=== PATIENT | male | born 2000 | race Caucasian/White ===

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

== ENCOUNTER 2021-06-21 12:10 | Emergency (ER) | payer SELFPAY ==
[~2021-06-21] VITALS: Ht 175.3 cm; Wt 76.2 kg
[~2021-06-21 12:10] MED LIST: SUDOGEST30 MG PO; ZITHROMAX250 MG PO
--- NOTE | 2021-06-22 16:31 | EKG ---
[facility] [address] [facility] [address] [facility] [place], [place] [address] Signed Normal sinus rhythm with sinus arrhythmia Normal ECG No previous ECGs available Confirmed by BREEZY GREENE DO ([id number]) on 06/22/2021 4:31:00 PM Electronically Signed By: BREEZY GREENE DO 06/22/21 163 PATIENT NAME: PHIL KUMAR Electrocardiogram DATE OF : [birth year] PHYSICIAN: BREEZY GREENE DO REPORT #: [id number] REPORT IS CONFIDENTIAL AND NOT TO BE RELEASED WITHOUT AUTHORIZATION
== END 2021-06-21 16:29 | disposition short-term general hospital (02) ==
LOC: ED 12:10
DX: U07.1 COVID-19 (principal); J45.909 Unspecified asthma, uncomplicated; Z88.8 Allergy status to other drugs, medicaments and biological substances; Z91.018 Allergy to other foods
CPT/HCPCS: 71045; 80053; 81001; 83605; 83735; 84484; 85025; 93005; 93010; 99285-25; J7030; U0003

== ENCOUNTER 2022-08-06 21:34 | Emergency (ER) | payer OTHER ==
[~2022-08-06] VITALS: Ht 180.3 cm; Wt 101.6 kg
== END 2022-08-06 22:11 | disposition home or self-care (01) ==
LOC: ED 21:34
DX: S00.83XA Contusion of other part of head, initial encounter (principal); V49.9XXA Car occupant (driver) (passenger) injured in unspecified traffic accident, initial encounter; J45.909 Unspecified asthma, uncomplicated; Z91.018 Allergy to other foods; Z88.8 Allergy status to other drugs, medicaments and biological substances
CPT/HCPCS: 99284